=== PATIENT | female | born 1945 | race Caucasian/White ===

== ENCOUNTER 2023-07-18 04:41 | Emergency (ER) | payer MEDICARE ==
[~2023-07-18] VITALS: Ht 170.2 cm; Wt 61.2 kg
[2023-07-18 05:31] LABS: BASOPHILS # (AUTO) 0.1 K/UL (0.0-0.2); BASOPHILS % (AUTO) 1.1 % (0.0-2.0); EOSINOPHILS # (AUTO) 0.1 K/uL (0.0-0.7); EOSINOPHILS % (AUTO) 1.3 % (0.0-7.0); HEMOGLOBIN 13.5 g/dL (10.9-14.3); LYMPHOCYTES # (AUTO) 1.7 K/uL (0.8-4.8); LYMPHOCYTES % (AUTO) 23.9 % (20.5-51.5); MEAN CORPUSCULAR HEMOGLOBIN 31.2 uug (24.7-32.8); MEAN CORPUSCULAR HGB CONC 35 g/dL (32.3-35.6); MEAN CORPUSCULAR VOLUME 90.2 fL (75.5-95.3); MONOCYTES # (AUTO) 0.5 K/uL (0.1-1.30); MONOCYTES % (AUTO) 7.3 % (0.0-11.0); NEUTROPHILS # (AUTO) 4.7 K/uL (1.8-8.9); NEUTROPHILS % (AUTO) 66.4 % (38.5-71.5); PLATELET COUNT (AUTO) 260 K/uL (179-408); RED BLOOD CELL COUNT(AUTO) 4.32 MIL/uL (3.63-4.92); RED CELL DISTRIBUTION WIDTH 14.5 % (12.3-17.7); WHITE BLOOD COUNT (AUTO) 7.1 K/uL (3.8-11.8)
[2023-07-18 05:50] LABS: DIFFERENTIAL COMMENT 1
[2023-07-18 05:56] LABS: *BILIRUBIN,URIN NEGATIVE (NEGATIVE); *CLARITY,URINE CLEAR (CLEAR); *COLOR,URINE YELLOW (YELLOW); *KETONES,URINE NEGATIVE (NEGATIVE); *PROTEIN,URINE NEGATIVE (NEGATIVE); *UROBILINOGEN,URINE 0.2 E.U./dl (NORMAL); LEUKOCYTE ESTERASE ,URINE TRACE (NEGATIVE); NITRITE, URINE NEGATIVE (NEGATIVE); PH,URINE 6.5 (5.0-8.0); UGLUCOSE NEGATIVE (NEGATIVE)
[2023-07-18 05:58] LABS: CALCIUM 9.6 mg/dL (8.5-10.1); CARBON DIOXIDE 26 mmol/L (21-32); CHLORIDE 103 mmol/L (98-107); CREATININE 1.1 mg/dL (0.6-1.3); GLUCOSE 95 mg/dL (74-106); POTASSIUM 4.2 mmol/L (3.5-5.1); SODIUM SERUM 138 mmol/L (136-145); UREA NITROGEN, BLOOD 16 mg/dL (7-18)
[2023-07-18 06:01] LABS: *BLOOD, URINE TRACE (NEGATIVE)
[2023-07-18 06:02] LABS: BACTERIA,URINE FEW /HPF (NONE SEEN); SQUAMOUS EPITHELIAL CELL,UR FEW /HPF (NONE SEEN)
[2023-07-18 06:05] LABS: ALANINE AMINOTRANSFERASE 17 U/L (14-59); ALBUMIN 3.7 g/dL (3.4-5.0); ALKALINE PHOSPHATASE 85 U/L (50-136); ASPARTATE AMINOTRANSFERASE 15 U/L (15-37); BILIRUBIN,DIRECT 0.1 mg/dL (0.0-0.2); BILIRUBIN,TOTAL 0.4 mg/dL (0.2-1.0); LIPASE 82 U/L (73-393); TOTAL PROTEIN, SERUM 6.7 g/dL (6.4-8.2)
[2023-07-18] MEDS ORDERED: BUPR-96 PO (06:06)
[2023-07-18] MEDS ORDERED: METO25TA3 PO (06:06)
[2023-07-18] MEDS ORDERED: CARB1TAB21 PO (06:06)
[2023-07-18] MEDS ORDERED: ATOR10TA PO (06:06)
[2023-07-18] MEDS ORDERED: ERGO400C PO (06:06)
[2023-07-18] MEDS ORDERED: CYAN100T44 PO (06:06)
[2023-07-18] MEDS ORDERED: PRIM50TA27 PO (06:06)
[2023-07-18] MEDS ORDERED: BUPR150T5 PO (06:06)
[2023-07-18] MEDS ORDERED: SERT100T PO (06:06)
[2023-07-18] MEDS ORDERED: SULF1TAB48 PO (06:18)
[2023-07-18] MEDS ORDERED: IOHEXOL 300MG/ML 100 ML INFUS..BTL ONE (06:35)
[2023-07-18] MEDS ORDERED: IV NORMAL SALINE 250 ML IV ONE (06:36)
[2023-07-18] MEDS ORDERED: SWABABLE VALVE TRANSFER SET EA MC ONE (06:36)
[2023-07-18] MEDS ORDERED: SULFAMETH/TRIMETH 800/160 MG TABLET PO ONE (06:45)
[2023-07-18] MEDS ORDERED: SULFAMETH/TRIMETH 800/160 MG TABLET ONE (07:16)
[2023-07-18 08:03] VITALS: BP 131/74; TEMP 98.2; O2SAT 97
== END 2023-07-18 08:35 | disposition home or self-care (01) ==
LOC: ER 04:44
DX: G20 Parkinson's disease (principal); N39.0 Urinary tract infection, site not specified; K80.20 Calculus of gallbladder without cholecystitis without obstruction; K57.30 Diverticulosis of large intestine without perforation or abscess without bleeding; K76.9 Liver disease, unspecified; Z88.1 Allergy status to other antibiotic agents; Z88.8 Allergy status to other drugs, medicaments and biological substances; Z79.899 Other long term (current) drug therapy
CPT/HCPCS: 36415; 83605; 83690; 83735; 85025; 93005; A4663; Q9967

== ENCOUNTER 2023-11-05 17:42 | Emergency (ER) | payer MEDICARE ==
[~2023-11-05] VITALS: Ht 162.6 cm; Wt 58.5 kg
[~2023-11-05 17:42] MED LIST: ATOR10TA PO; BUPR-96 PO; BUPR150T5 PO; CARB1TAB21 PO; CYAN100T44 PO; ERGO400C PO; METO25TA3 PO; PRIM50TA27 PO; SERT100T PO; SULF1TAB48 PO
[2023-11-05 18:39] LABS: HEMOGLOBIN 12.8 g/dL (10.9-14.3)
[2023-11-05 18:51] LABS: BASOPHILS % (AUTO) 0.4 % (0.0-2.0); DIFFERENTIAL COMMENT 0; EOSINOPHILS # (AUTO) 0.1 K/uL (0.0-0.7); EOSINOPHILS % (AUTO) 2.1 % (0.0-7.0); HEMATOCRIT 36.8 % (31.2-41.9); LYMPHOCYTES # (AUTO) 1.2 K/uL (0.8-4.8); LYMPHOCYTES % (AUTO) 17.1 % (20.5-51.5); MEAN CORPUSCULAR HEMOGLOBIN 31.6 uug (24.7-32.8); MEAN CORPUSCULAR HGB CONC 35 g/dL (32.3-35.6); MEAN CORPUSCULAR VOLUME 91.1 fL (75.5-95.3); MONOCYTES # (AUTO) 0.5 K/uL (0.1-1.30); NEUTROPHILS # (AUTO) 5.1 K/uL (1.8-8.9); NEUTROPHILS % (AUTO) 73.4 % (38.5-71.5); PLATELET COUNT (AUTO) 255 K/uL (179-408); RED BLOOD CELL COUNT(AUTO) 4.04 MIL/uL (3.63-4.92); WHITE BLOOD COUNT (AUTO) 6.9 K/uL (3.8-11.8)
[2023-11-05 19:05] LABS: ALANINE AMINOTRANSFERASE 30 U/L (14-59); ALBUMIN 3.6 g/dL (3.4-5.0); ALKALINE PHOSPHATASE 87 U/L (50-136); ASPARTATE AMINOTRANSFERASE 15 U/L (15-37); BILIRUBIN,DIRECT 0.1 mg/dL (0.0-0.2); BILIRUBIN,TOTAL 0.3 mg/dL (0.2-1.0); CARBON DIOXIDE 26 mmol/L (21-32); CHLORIDE 105 mmol/L (98-107); GLUCOSE 109 mg/dL (74-106); NT-PRO BNP 138 pg/mL (0-125); POTASSIUM 3.9 mmol/L (3.5-5.1); SODIUM SERUM 140 mmol/L (136-145); TOTAL PROTEIN, SERUM 6.7 g/dL (6.4-8.2); UREA NITROGEN, BLOOD 20 mg/dL (7-18)
[2023-11-05 19:12] LABS: CALCIUM 9.4 mg/dL (8.5-10.1)
[2023-11-05] MEDS ORDERED: LORAZEPAM 0.5 MG TABLET PO ONE (20:45)
[2023-11-05] MEDS ORDERED: LORAZEPAM 0.5 MG TABLET ONE (21:03)
[2023-11-05] MEDS ORDERED: LORA0.5T48 PO ×2 (21:51→21:53)
[2023-11-05 23:36] VITALS: BP 108/72; TEMP 98.5; O2SAT 98
== END 2023-11-05 22:30 | disposition home or self-care (01) ==
LOC: ER 17:46
DX: R07.89 Other chest pain (principal); F41.9 Anxiety disorder, unspecified; F32.A Depression, unspecified; Z79.899 Other long term (current) drug therapy; Z88.1 Allergy status to other antibiotic agents
CPT/HCPCS: 36415; 71045; 84484; 85025; 93005; A4606; A4663

== ENCOUNTER 2023-12-08 16:55 | Emergency (ER) | payer MEDICARE ==
[~2023-12-08 16:55] MED LIST changes: +LORA0.5T48 PO
== END 2023-12-08 17:11 | disposition left against medical advice (07) ==
LOC: ER 16:57
DX: R10.9 Unspecified abdominal pain (principal); Z53.21 Procedure and treatment not carried out due to patient leaving prior to being seen by health care provider